=== PATIENT | female | born 1970 | race Caucasian/White ===

== ENCOUNTER 2024-10-31 17:29 | Emergency (ER) | payer MEDICAID, SELFPAY ==
[2024-10-31 17:32] VITALS: PULSE 80; O2SAT 96
[2024-10-31 17:34] VITALS: BP 130/83; PULSE 72; RESP 17; TEMP 35.9; O2SAT 98
[2024-10-31 18:03] VITALS: BP 117/89; PULSE 70; RESP 18; TEMP 36.3; O2SAT 98
[2024-10-31 18:04] VITALS: BMI 30.2
--- NOTE | 2024-10-31 18:30 | PD.EDNV ---
Nausea/Vomit./Diarrhea-RME/HPI General Chief complaint: Nausea/Vomiting/Diarrhea Stated complaint: CHOKING Time Seen by Provider: 10/31/24 18:03 Arrival date/time: 10/31/24 17:29 RME / HPI RME / HPI Narrative: Dr. Olivares?s Main ED Evaluation: 54yo female with a history of autism BIBA from home care facility presents to the ED for a choking episode. Caregiver states the patient was eating chicken and rice when she started choking, had an episode of vomiting, and went faint , so 911 was called. Caregiver states the patient is now back to her baseline. Full ROS is unobtainable due to the patient being nonverbal. Related Data Home Medications ?Medication ?Instructions ?Recorded ?Confirmed aripiprazole 10 mg tablet (Abilify) 10 mg PO QDAY #0 tabs 10/15/16 carbamazepine 200 mg tablet 200 mg PO BID #0 tabs 10/15/16 (Tegretol) docusate sodium 100 mg capsule 100 mg PO QDAY #0 caps 10/15/16 (Colace) sertraline 100 mg tablet (Zoloft) 100 mg PO BID #0 tabs 10/15/16 Allergies Allergy/AdvReac Type Severity Reaction Status Date / Time NKA* Allergy Uncoded 10/31/24 18:11 Review of Systems Review of Systems ROS Unobtainable: other (unobtainable due to the patient being nonverbal) Past Medical History Past Medical History NEUROLOGIC: Positive Neurological Disorders (MENTALLY DELAYED) and Seizures CARDIAC: Negative Congestive Heart Failure RESPIRATORY: Negative Chronic Obstructive Pulmonary Disease (COPD) GENITOURINARY: Negative Renal Disease ENDOCRINE: Negative Diabetes Mellitus Type 1 or Diabetes Mellitus Type 2 ED Exam Narrative Physical exam: Generally patient is developmentally delayed and in no obvious distress able to swallow her saliva. Heart regular rate and rhythm. Lungs are clear to auscultation without wheezes. Patient is in no respiratory distress. Abdomen is somewhat distended and tympanic but nontender. Neurologic exam shows the patient to be nonverbal and not follow simple commands which is baseline for the patient. Course Course Course Narrative: CXR is ordered to r/o foreign body. Quality Measures none Orders Category Date Time Status EKG (ED ONLY) *Do not use* NOW Care 10/31/24 18:35 Active EKG (ED Only) Stat Exams 10/31/24 18:35 Draft XR chest 1V portable Stat Exams 10/31/24 18:35 Taken Vital Signs Vital signs: Vital Signs Temperature 96.6 F L 10/31/24 17:34 Pulse Rate 72 10/31/24 17:34 Respiratory Rate 17 10/31/24 17:34 Blood Pressure 130/83 10/31/24 17:34 Pulse Oximetry (%) 98 10/31/24 17:34 Oxygen Delivery Method Room Air 10/31/24 17:34 Nausea/Vomiting/Diarrhea MDM Narrative MDM Narrative:: Scribe Attestation: 10/31/24 - Christine Garcia am scribing for and in the presence of Dr. Olivares. Chest x-ray shows no infiltrate. There is a large amount of gas within the colon and stomach. EKG shows normal sinus rhythm at a rate of 60 with an occasional ectopic premature complexes. Patient is in no obvious distress. No respiratory distress. Patient is breathing normal and is back to baseline according to allergist immunologist. Patient apparently had a choking episode. Patient will be discharged in stable condition. Patient data External records reviewed:: [facility] previous records (Per chart review, patient has no previous ED visits or admissions to this facility.) and EMS form Clinical information provided by:: allergist immunologist Social determinants that could affect healthcare access:: none Patient has the following chronic illnesses:: seizures How is presenting disease/condition affected by chronic disease/condition?: uneffected by Evaluation data The following diagnostics were reviewed and interpreted by me:: radiology exam(s) and EKG tracing(s) Lab and/or radiology exams considered but not ordered:: none Interpretation Summary: See MDM. Medications / Prescriptions Medications / Prescriptions considered but not ordered:: none Medication administrations:: none Consultations Consultation(s) initiated? (list below): No Diagnosis Nausea Differential Diagnosis: other (See MDM.) Most likely diagnosis given after review of the tests above:: see clinical impression below Admission Indicated Admission indicated?: not indicated Explain why admission is indicated or not indicated:: With no condition needing emergent intervention, there was no indication for admission. Admission Request Was there a request for admission?: No Disposition Plan Disposition Plan: Discharge Discharge Attestation Discharge Attestation: The patient and all family members were given an opportunity to ask questions and understood the discharge instructions. Discharge instructions specifically effects, indications for sooner follow up or return to the emergency department, and the expected course of current diagnosis. Patient condition: Stable Discharge Plan Plan Patient Disposition: HOME (Self Care) Prescriptions/Referrals Prescriptions/Med Rec: No Action sertraline [Zoloft] 100 MG tablet 100 mg PO BID Qty: 0 carbamazepine [Tegretol] 200 MG tablet 200 mg PO BID Qty: 0 docusate sodium [Colace] 100 MG capsule 100 mg PO QDAY Qty: 0 aripiprazole [Abilify] 10 MG tablet 10 mg PO QDAY Qty: 0 Referrals: Deja Iyer MD [Primary Care Provider] - In 1 week Problem List Clinical Impression: Choking episode Patient/Caregiver Discharge Instructions Additional Instructions: Continue current outpatient management and feedings. Print Language: Azeri Stand Alone Forms: [employer] Info., Patient Portal Info Letter
--- NOTE | 2024-10-31 18:35 | EKG_ITS ---
[facility] Test Date: 2024-10-31 Pat Name: CARLOS FRANCO Department: Room: - Gender: Female Clerical Supervisor: : [id number] Requested By: Faisal Ortiz Order Number: [id number] Reading MD: Faisal Ortiz Measurements Intervals [place] Rate: 60 P: 19 UT: 116 QRS: 10 QRSD: 82 T: 37 QT: 375 QTc: 375 Interpretive Statements SINUS RHYTHM WITH SHORT UT INTERVAL WITH OCCASIONAL ECTOPIC PREMATURE COMPLEXES LOW QRS VOLTAGE IN PRECORDIAL LEADS [QRS DEFLECTION < 1.0 mV IN CHEST LEADS] POSSIBLE ANTERIOR MYOCARDIAL INFARCTION , PROBABLY OLD [30 ms Q WAVE IN V3/V4, OR R < 0.2 mV IN V4] No previous ECG available for comparison /store/[email or web address]/[id number].pdf
--- NOTE | 2024-10-31 18:35 | XR_ITS ---
Examination: AP chest single view TECHNIQUE: AP portable upright chest single view Date and time: October 31, 2024 1842 hours INDICATIONS: Chest pain and shortness of breath today. FINDINGS: Mild prominence left ventricle Reduced inspiratory effort Air distended stomach Mild vascular congestion. No lobar pneumonia or pulmonary edema IMPRESSION: Mild vascular congestion. No lobar pneumonia or pulmonary edema
[2024-10-31 19:16] VITALS: BP 117/89; PULSE 70; RESP 14; O2SAT 97
[2024-10-31 19:19] VITALS: BP 117/89; PULSE 67; RESP 14; O2SAT 96
== END 2024-10-31 19:20 | disposition home or self-care (01) ==
PROVIDERS: Emergency Provider Emergency Medicine; PCP Internal Medicine Infectious Disease
DX: R09.89 Other specified symptoms and signs involving the circulatory and respiratory systems (principal); F84.0 Autistic disorder
CPT/HCPCS: 71045; 99283